=== PATIENT | female | born 1945 | race Caucasian/White ===

== ENCOUNTER 2016-11-09 13:28 | Observation (INO) | payer MEDICARE, OTHER ==
[2016-11-09] MEDS ORDERED: Aspirin Low Dose CHEW TAB* 81 MG ONE (13:45)
[2016-11-09] MEDS ORDERED: Aspirin Low Dose CHEW TAB* 81 MG PO ONE (13:55)
[2016-11-09] MEDS ORDERED: NS 0.9% 1000 ML* 1,000 ML IV SCH (14:00)
[2016-11-09 14:14] LABS: Hematocrit 40 % (35-47); Hemoglobin 13.6 g/dl (12.0-16.0); Mean Corpuscular HGB Conc 34 g/dl (31-36); Mean Corpuscular Hemoglobin 32 pg (27-31); Mean Corpuscular Volume 95 fL (80-97); Mean Platelet Volume 8 um3 (7.4-10.4); Red Blood Count 4.25 10^6/ul (4.0-5.4); Red Cell Distribution Width 13 % (10.5-15)
[2016-11-09 14:29] LABS: ALT 15 U/L (7-52); AST 24 U/L (13-39); Alkaline Phosphatase 66 U/L (34-104); BUN/Creatinine Ratio 24.7 (8-20); Blood Urea Nitrogen 22 mg/dL (6-24); C Reactive Protein 5.47 mg/L (< 5.00); CO2 Carbon Dioxide 29 mmol/L (22-32); Calcium 9.4 mg/dL (8.6-10.3); Chloride 126 mmol/L (101-111); Creatine Kinase 100 U/L (10-223); EGFR Non-African American 62.2 (>60); Globulin 3.4 g/dL (2-4); Glucose 103 mg/dL (70-100); Lipase < 10 U/L (11.0-82.0); Potassium 5.5 mmol/L (3.5-5.0); Total Protein 7.4 g/dL (6.4-8.9)
[2016-11-09 14:30] LABS: Troponin I 0.01 ng/mL (<0.04)
[2016-11-09 14:33] LABS: Anion Gap 14 mmol/L (2-11); Sodium 169 mmol/L (133-145)
--- NOTE | 2016-11-09 14:33 | RAD ---
Indication: Chest pain, lightheaded. Comparison: November 10, 2015 CT abdomen and chest radiograph. Technique: Upright AP 1405 hours Report: Clear lungs and pleural spaces. Negative for pneumothorax. The heart, pulmonary vasculature, and mediastinal contours are unremarkable. Mild osteoarthritis about the shoulders. IMPRESSION: No evidence for acute intrathoracic disease.
[2016-11-09 15:09] LABS: BUN/Creatinine Ratio 25.6 (8-20); Calcium 9.3 mg/dL (8.6-10.3); EGFR African American 83.2 (>60); EGFR Non-African American 64.7 (>60)
[2016-11-09 15:10] LABS: TSH (Thyroid Stimulating Horm) 0.97 mcIU/mL (0.34-5.60)
[2016-11-09] MEDS ORDERED: Albuterol HFA INHALER* 8 gm MDI INH PRN (16:13)
[2016-11-09] MEDS ORDERED: Mometasone/Formoter 200/5 MDI INH PRN (16:13)
[2016-11-09] MEDS ORDERED: Al Hydrox/Mg Hydrox/Simet LIQ* 30 ML UDC PO PRN (16:19)
--- NOTE | 2016-11-09 16:36 | ED ---
Kirill Swan Benjamin, scribed for Pardeep Enrique MD on 11/09/16 at 1448 . HPI Chest Pain - HPI Summary HPI Summary: 71yo female c/o feeling like passing out, lightheaded, and burning pain in mid sternal chest in 7/10 pain scale. Pt has hx of HTN, A-fib, and is on a blood thinner. - History of Current Complaint Chief Complaint: EDDysrhythmPalp Hx Obtained From: Patient Onset/Duration: Started Hours Ago, Resolved Timing: Constant Initial Severity: Mild Current Severity: None Pain Intensity: 0 Pain Scale Used: 0-10 Numeric Chest Pain Location: Mid Sternal Chest Pain Radiates: No Character: Burning Aggravating Factor(s): Nothing Alleviating Factor(s): Nothing Associated Signs and Symptoms: Positive: Syncope - near syncopal, Lightheadedness - Allergy/Home Medications Allergies/Adverse Reactions: Allergies Allergy/AdvReac Type Severity Reaction Status Date / Time No Known Allergies Allergy Verified 04/11/13 09:16 Home Medications: Home Medications Albuterol HFA INHALER* [Ventolin HFA Inhaler*] 1 puff INH Q6H PRN 11/09/16 [ History Confirmed 11/09/16] Budesonide/Formote 160/4.5(NF) [Symbicort 160/4.5 (NF)] 2 puff INH BID PRN 11/09 [History Confirmed 11/09/16] Calcium Citrate TAB* [Citracal TAB*] 600 mg PO BID 11/09/16 [History Confirmed 11/09/16] Cholecalciferol [Vitamin D] 1,000 unit PO DAILY 11/09/16 [History Confirmed ] Dabigatran CAP(NF) [Pradaxa CAP(NF)] 150 mg PO BID 11/09/16 [History Confirmed 11/09/16] Metoprolol Succinate XL TAB* [Toprol XL TAB*] 100 mg PO DAILY 11/09/16 [History Confirmed 11/09/16] Montelukast Sodium TAB* [Singulair TAB*] 10 mg PO DAILY 11/09/16 [History Confirmed 11/09/16] Omeprazole CAP* [Prilosec CAP* 20 MG] 20 mg PO DAILY 11/09/16 [History Confirmed 11/09/16] amLODIPine TAB* [Norvasc 5 mg TAB*] 5 mg PO DAILY 11/09/16 [History Confirmed ] PMH/Surg Hx/FS Hx/Imm Hx Endocrine/Hematology History: Reports: Hx Anticoagulant Therapy Denies: Hx Diabetes, Hx Thyroid Disease Cardiovascular History: Reports: Hx Atrial Fibrillation, Hx Hypertension Respiratory History: Reports: Hx Asthma Denies: Hx Chronic Obstructive Pulmonary Disease (COPD) GI History: Denies: Hx Ulcer - Surgical History Surgery Procedure, Year, and Place: Rotator Cuff Repair. Both Wrist Tendon Release. Trick Thumb Infectious Disease History: Yes Infectious Disease History: Denies: Hx Hepatitis, Hx Human Immunodeficiency Virus (HIV), Traveled Outside the [place] in Last 30 Days - Family History Known Family History: Positive: Hypertension - Social History Occupation: Retired Lives: With Family Alcohol Use: Occasionally Hx Substance Use: No Substance Use Type: Reports: None Hx Tobacco Use: No Smoking Status (MU): Never Smoked Tobacco Have You Smoked in the Last Year: No Review of Systems Constitutional: Other - NEAR SYNCOPE Eyes: Negative ENT: Negative Positive: Palpitations, Chest Pain Respiratory: Negative Gastrointestinal: Negative Genitourinary: Negative Musculoskeletal: Negative Skin: Negative Neurological: Negative Psychological: Normal All Other Systems Reviewed And Are Negative: Yes Physical Exam Vital Signs On Initial Exam: Initial Vitals Temp Pulse Resp BP Pulse Ox 98.0 F 45 16 133/89 99 11/09/16 13:29 11/09/16 13:29 11/09/16 13:29 11/09/16 13:29 11/09/16 13:29 Diagnostics - Vital Signs Vital Signs Temp Pulse Resp BP Pulse Ox 11/09/16 14:00 89 15 137/82 99 11/09/16 13:53 99 99 11/09/16 13:50 97.9 F 89 20 144/82 99 11/09/16 13:29 98.0 F 45 16 133/89 99 - Laboratory Lab Results: Lab Results 11/09/16 11/09/16 11/09/16 Range/Units 14:04 14:04 14:04 WBC 7.0 (3.5-10.8) 10^3/ul RBC 4.25 (4.0-5.4) 10^6/ul Hgb 13.6 (12.0-16.0) g/dl Hct 40 (35-47) % MCV 95 (80-97) fL MCH 32 H (27-31) pg MCHC 34 (31-36) g/dl RDW 13 (10.5-15) % Plt Count 243 (150-450) 10^3/ul MPV 8 (7.4-10.4) um3 Neut % (Auto) 55.8 (38-83) % Lymph % (Auto) 26.3 (25-47) % [place] % (Auto) 14.6 H (1-9) % Eos % (Auto) 2.4 (0-6) % Baso % (Auto) 0.9 (0-2) % Absolute Neuts (auto) 3.9 (1.5-7.7) 10^3/ul Absolute Lymphs (auto) 1.8 (1.0-4.8) 10^3/ul Absolute Monos (auto) 1.0 H (0-0.8) 10^3/ul Absolute Eos (auto) 0.2 (0-0.6) 10^3/ul Absolute Basos (auto) 0.1 (0-0.2) 10^3/ul Absolute Nucleated RBC 0 10^3/ul Nucleated RBC % 0 INR (Anticoag Therapy) 0.94 (0.89-1.11) APTT 37.6 H (26.0-36.3) seconds D-Dimer, Quantitative < 200 (Less Than 230) ng/mL Sodium 169 H* (133-145) mmol/L Potassium 5.5 H (3.5-5.0) mmol/L Chloride 126 H (101-111) mmol/L Carbon Dioxide 29 (22-32) mmol/L Anion Gap 14 H (2-11) mmol/L BUN 22 (6-24) mg/dL Creatinine 0.89 (0.51-0.95) mg/dL Est GFR ( Amer) 80.0 (>60) Est GFR (Non-Af Amer) 62.2 (>60) BUN/Creatinine Ratio 24.7 H (8-20) Glucose 103 H (70-100) mg/dL Lactic Acid (0.5-2.0) mmol/L Calcium 9.4 (8.6-10.3) mg/dL Magnesium 2.0 (1.9-2.7) mg/dL Total Bilirubin 0.60 (0.2-1.0) mg/dL AST 24 (13-39) U/L ALT 15 (7-52) U/L Alkaline Phosphatase 66 (34-104) U/L Total Creatine Kinase 100 (10-223) U/L CK-MB (CK-2) 2.4 (0.6-6.3) ng/mL Troponin I 0.01 (<0.04) ng/mL C-Reactive Protein 5.47 H (< 5.00) mg/L B-Natriuretic Peptide ( - 100) pg/mL Total Protein 7.4 (6.4-8.9) g/dL Albumin 4.0 (3.2-5.2) g/dL Globulin 3.4 (2-4) g/dL Albumin/Globulin Ratio 1.2 (1-3) Lipase < 10 L (11.0-82.0) U/L TSH Pending 11/09/16 11/09/16 Range/Units 14:04 14:04 WBC (3.5-10.8) 10^3/ul RBC (4.0-5.4) 10^6/ul Hgb (12.0-16.0) g/dl Hct (35-47) % MCV (80-97) fL MCH (27-31) pg MCHC (31-36) g/dl RDW (10.5-15) % Plt Count (150-450) 10^3/ul MPV (7.4-10.4) um3 Neut % (Auto) (38-83) % Lymph % (Auto) (25-47) % [place] % (Auto) (1-9) % Eos % (Auto) (0-6) % Baso % (Auto) (0-2) % Absolute Neuts (auto) (1.5-7.7) 10^3/ul Absolute Lymphs (auto) (1.0-4.8) 10^3/ul Absolute Monos (auto) (0-0.8) 10^3/ul Absolute Eos (auto) (0-0.6) 10^3/ul Absolute Basos (auto) (0-0.2) 10^3/ul Absolute Nucleated RBC 10^3/ul Nucleated RBC % INR (Anticoag Therapy) (0.89-1.11) APTT (26.0-36.3) seconds D-Dimer, Quantitative (Less Than 230) ng/mL Sodium (133-145) mmol/L Potassium (3.5-5.0) mmol/L Chloride (101-111) mmol/L Carbon Dioxide (22-32) mmol/L Anion Gap (2-11) mmol/L BUN (6-24) mg/dL Creatinine (0.51-0.95) mg/dL Est GFR ( Amer) (>60) Est GFR (Non-Af Amer) (>60) BUN/Creatinine Ratio (8-20) Glucose (70-100) mg/dL Lactic Acid 1.1 (0.5-2.0) mmol/L Calcium (8.6-10.3) mg/dL Magnesium (1.9-2.7) mg/dL Total Bilirubin (0.2-1.0) mg/dL AST (13-39) U/L ALT (7-52) U/L Alkaline Phosphatase (34-104) U/L Total Creatine Kinase (10-223) U/L CK-MB (CK-2) (0.6-6.3) ng/mL Troponin I (<0.04) ng/mL C-Reactive Protein (< 5.00) mg/L B-Natriuretic Peptide 364 H ( - 100) pg/mL Total Protein (6.4-8.9) g/dL Albumin (3.2-5.2) g/dL Globulin (2-4) g/dL Albumin/Globulin Ratio (1-3) Lipase (11.0-82.0) U/L TSH Result Diagrams: 11/09/16 14:04 11/09/16 14:45 Lab Statement: Any lab studies that have been ordered have been reviewed, and results considered in the medical decision making process. - Radiology CXR Xray Interpretation: No Acute Changes Radiology Interpretation Completed By: Radiologist - EKG 1335 Cardiac Rate: Tachycardia - 123bpm EKG Rhythm: Atrial Fibrillation Chest Pain Course/Dx - Course Course Of Treatment: NO CRITICAL CARE TIME. NA OF 169 RECHECKED, IT WAS 134 ON RECHECK. ADMIT HOSPITALIST STABLE. - Diagnoses Provider Diagnoses: Chest pain, Rapid atrial fibrillation, Near syncope, Bradycardia Discharge - Discharge Plan Condition: Stable Disposition: ADMITTED TO [facility] The documentation as recorded by the betiibKirill chauhan Benjamin accurately reflects the service I personally performed and the decisions made by me, Pardeep Enrique MD.
[2016-11-09] MEDS: CMCS: Dabigatran CAP(NF) 150 MG CAP PO SCH (21:43)
--- NOTE | 2016-11-10 02:13 | HP ---
CC: Dr. Maritza Woods in [place], [place] * HISTORY AND PHYSICAL: DATE OF ADMISSION: 11/09/16 AGE: 71. PRIMARY CARE PHYSICIAN: Dr. Maritza Woods. ATTENDING PHYSICIAN: Dr. Marylin Qureshi *(dictated by Laurie Reilly NP). CHIEF COMPLAINT: Lightheadedness with burning midsternal chest discomfort. HISTORY OF PRESENT ILLNESS: Ms. Khoury is a 71-year-old female with past medical history significant for hypertension, atrial fibrillation, and asthma who presents to the emergency room with complaints of lightheadedness and a burning midsternal chest pain. The patient states the family thinks she has had eaten today was a half of a banana prior to developing the heartburn in addition to her Pradaxa and other morning medications. The patient does not recall having previous symptoms like this in the past. The patient denies any chest heaviness, sharpness, or pressure, although she does report intermittent pain in her left breast and axillary when she reaches. The patient reports some palpitations earlier today. She denies any fever, chills. Does report a dry cough. Denies any shortness of breath, nausea, vomiting, diarrhea, diaphoresis. She denies any urinary symptoms. She reports developing a headache the day after arriving at the hospital. The patient also reports a 1- week history of a sharp pain in her left restoration. The patient felt that her chest discomfort was a heartburn, but due to the associated lightheadedness decided to present to the emergency room for further evaluation of her symptoms. While in the emergency room, the patient received normal saline and an aspirin. She had labs drawn that were initially altered, but upon re-draw were within normal limits. The patient reportedly had a heart rate in the 40s upon initial check in the emergency room, but upon being taken back and placed on the monitor , her heart rate was in the 90s to 100s. She had an EKG showing an atrial fibrillation with a rate of 123. This EKG is similar to previous EKG from 11/09. The patient had a chest x-ray showing no evidence for acute intracranial disease. The patient had a D-dimer less than 200, troponin 0.01, TSH 0.97, CRP of 5.47, BNP of 364. Due to the patient's presentation and complaints of a near -syncopal episode and chest discomfort, the hospitalists were asked to evaluate the patient for admission. PAST MEDICAL HISTORY: 1. Hypertension. 2. Atrial fibrillation. 3. Asthma. 4. MRSA infection of the thumb. 5. A torn retina in the left eye. PAST SURGICAL HISTORY: 1. Status post bilateral rotator cuff repair. 2. Status post bilateral tendon release of her wrist. 3. Status post bilateral "trick" thumb release. HOME MEDICATIONS: Include: 1. Albuterol HFA 1 puff inhalation every 6 hours as needed for shortness of breath or wheeze. 2. Amlodipine 5 mg oral daily. 3. Prilosec 20 mg oral daily. 4. Singulair 10 mg oral daily. 5. Metoprolol succinate 100 mg oral daily. 6. Pradaxa 150 mg oral twice daily. 7. Vitamin D 1000 units oral daily. 8. Citracal 600 mg oral twice daily. 9. Symbicort 160/4.5 mg 2 puff inhalation twice daily. 10. Acetaminophen 1300 mg oral as needed. ALLERGIES: ENVIRONMENTAL ALLERGIES and DARVON caused GI upset. FAMILY HISTORY: The patient denies any family history of coronary artery disease, diabetes mellitus, or cancer. SOCIAL HISTORY: The patient denies tobacco or recreational drug use. She drinks alcohol 1 to 2 times weekly with 1 to 2 glasses of wine in a day. The patient is retired. Her surrogate decision maker will be her daughter, Brandi Delgado, or her significant other, Caesar Taylor, in the event that she is unable to make decisions for herself. REVIEW OF SYSTEMS: I performed a 14-point review of systems. All the pertinent positives and negatives are mentioned in the history of present illness. The remaining review of systems are negative. PHYSICAL EXAMINATION GENERAL APPEARANCE: The patient is alert, pleasant, appears to be in no acute distress. VITAL SIGNS: Temperature 98.6, heart rate 97, respiratory rate 16, O2 sat 100% on room air, blood pressure 138/80. HEENT: Normocephalic, atraumatic. The patient has no temporal tenderness with palpation. Pupils are equal and reactive to light. Extraocular movements are intact. RESPIRATORY: There is no accessory muscle use and lungs are clear to auscultation bilaterally. CARDIOVASCULAR: Irregular irregular rate and rhythm. S1, S2 present. There are no murmurs, rubs, or gallops heard. ABDOMEN: Soft, nontender, nondistended. There are bowel sounds present x4. EXTREMITIES: There is no lower extremity edema. DP and PT pulses are 2+ and symmetric. MUSCULOSKELETAL: There is no clubbing or cyanosis noted. The patient exhibits good strength in all extremities. NEUROLOGICAL: The patient is alert and oriented x4. Cranial nerves II through XII are grossly intact. PSYCHOLOGICAL: The patient is calm and cooperative. SKIN: There are no rashes or abnormalities seen. DIAGNOSTIC STUDIES/LABORATORY DATA: Sodium 134, potassium 4.0, chloride 100, CO2 27, BUN 22, creatinine 0.86, and glucose 98. Magnesium 2.0, PTT 37.6, D- dimer less than 200, troponin 0.01. CRP 5.47, BNP 364. TSH 0.97. ECG from today shows atrial fibrillation with a rate of 123. This EKG is similar to previous EKG from 11/10/15, at which time the patient was also noted to be in atrial fibrillation. Chest x-ray from today. Radiologist's impression: No evidence for acute intrathoracic disease. IMPRESSION: Ms. Khoury is a 71-year-old female with past medical history significant for atrial fibrillation, hypertension, and asthma who presents to the emergency room with complaints of a near syncopal event with chest discomfort and lightheadedness. She will be admitted as an observation for chest pain, atrial fibrillation with rapid ventricular response, and near syncope. ASSESSMENT/PLAN: 1. Chest pain. I suspect this is likely indigestion. It has since resolved. The patient has a REMIGIO score of 1. We will trend her troponins and monitor her on telemetry. There are no signs of acute ischemia on telemetry. We will hold a a stress test at this time. 2. Atrial fibrillation with rapid ventricular response. The patient's heart rate is currently in the 90s to 110s. For now, we will continue her on her home metoprolol succinate and Pradaxa. We will monitor her on telemetry. If the patient's heart rate proves to be uncontrolled, we will consider getting a cardiology consult. The patient's magnesium and potassium are both at ideal levels with a potassium of 4.0 and a magnesium of 2.0. The patient should have a goal potassium of greater than 4.0 and magnesium of 2. The patient follows with Dr. Stone" in [place], [place]. 3. Near syncope. We will check the patient's orthostatic vital signs. I suspect this could have been related to the patient's atrial fibrillation. We will watch the patient on telemetry and see if she does in fact have bradycardia as initially reported. If she does in fact have bradycardia this may represent tachy-atul syndrome, we will ask Cardiology to consult. 4. Hypertension: We will continue the patient on her home amlodipine. 5. Asthma: The patient will be continued on her Symbicort or auto-substitute in addition to albuterol inhaler as needed. The patient currently does not have any signs of asthma exacerbation. 6. Fluids, electrolytes, and nutrition. The patient will be on a heart healthy diet. 7. Code status. Full code. 8. DVT prophylaxis. The patient is at high risk and will be continued on her home Pradaxa. 9. Disposition. Observation. TIME SPENT: The time for this admission was 60 minutes, greater than half of that was spent [id number] with the patient discussing medications, past medical history, and the events leading up to her arrival today and performing a physical examination. The case has been reviewed with the attending, Dr. Qureshi, who agrees with the plan of care. Reviewed by JULIA ELI 11/12/16 1513 [id number]/[facility] #: [id number] [place]
[2016-11-10 04:25] LABS: Urine Bilirubin Negative (Negative); Urine Glucose Negative (Negative); Urine Nitrite Negative (Negative)
[2016-11-10] MEDS ORDERED: Omeprazole CAP* 20 MG PO SCH (07:30)
[2016-11-10] MEDS ORDERED: amLODIPine TAB* 5 MG PO SCH (09:00)
[2016-11-10] MEDS ORDERED: Montelukast Sodium TAB* 10 MG PO SCH (09:00)
[2016-11-10] MEDS ORDERED: Metoprolol Succinate XL TAB* 100 MG PO SCH ×2 (09:00)
[2016-11-10] MEDS: CMCS: Dabigatran CAP(NF) 150 MG CAP PO SCH (10:17)
--- NOTE | 2016-11-10 12:58 | PN ---
Subjective Date of Service: 11/10/16 Interval History: Ms. Khoury states that she is feeling much better today. She denies chest pain , SOB, nausea or abdominal pain. Objective Active Medications: Al Hydrox/Mg Hydrox/Simethicone (Maalox Plus*) 30 ml PO Q6H PRN Albuterol (Ventolin Hfa Inhaler*) 1 puff INH Q6H PRN Amlodipine Besylate (Norvasc Tab*) 5 mg PO DAILY [facility] Dabigatran (Pradaxa Cap(Nf)) 150 mg PO BID [facility] Metoprolol Succinate (Toprol Xl Tab*) 100 mg PO DAILY [facility] Mometasone Furoate/Formoterol Fumar (Dulera 200/5 Mdi*) 2 puff INH BID PRN; Protocol Montelukast Sodium (Singulair Tab*) 10 mg PO DAILY [facility] Omeprazole (Prilosec Cap*) 20 mg PO DAILY@0730 [facility] Vital Signs 11/09/16 11/09/16 11/09/16 15:00 15:12 15:30 Temperature Pulse Rate 91 91 114 Respiratory 15 19 22 Rate Blood Pressure 132/76 140/71 (mmHg) O2 Sat by Pulse 98 98 98 Oximetry 11/09/16 11/09/16 11/09/16 15:44 20:04 23:49 Temperature 98.6 F 97.5 F 98.0 F Pulse Rate 99 69 82 Respiratory 16 16 20 Rate Blood Pressure 138/80 131/69 106/63 (mmHg) O2 Sat by Pulse 100 99 97 Oximetry 11/10/16 11/10/16 11/10/16 03:59 07:37 07:53 Temperature 98.4 F Pulse Rate 77 88 Respiratory 20 14 14 Rate Blood Pressure 100/62 126/43 (mmHg) O2 Sat by Pulse 97 99 Oximetry 11/10/16 07:58 Temperature 97.7 F Pulse Rate Respiratory Rate Blood Pressure (mmHg) O2 Sat by Pulse Oximetry Oxygen Devices in Use Now: None Appearance: Female sitting up in bed in NAD Eyes: No Scleral Icterus Ears/Nose/Mouth/Throat: Mucous Membranes Moist Neck: Trachea Midline Respiratory: Symmetrical Chest Expansion and Respiratory Effort, Clear to Auscultation Cardiovascular: NL Sounds; No Murmurs; No JVD, No Edema Abdominal: NL Sounds; No Tenderness; No Distention Lymphatic: No Cervical Adenopathy Extremities: No Edema Skin: No Rash or Ulcers Neurological: Alert and Oriented x 3, NL Muscle Strength and Tone Nutrition: Taking PO's Result Diagrams: 11/09/16 14:04 11/09/16 14:45 Additional Lab and Data: Lab Results 11/09/16 11/09/16 11/09/16 Range/Units 14:04 14:04 14:04 WBC 7.0 (3.5-10.8) 10^3/ul RBC 4.25 (4.0-5.4) 10^6/ul Hgb 13.6 (12.0-16.0) g/dl Hct 40 (35-47) % MCV 95 (80-97) fL MCH 32 H (27-31) pg MCHC 34 (31-36) g/dl RDW 13 (10.5-15) % Plt Count 243 (150-450) 10^3/ul MPV 8 (7.4-10.4) um3 Neut % (Auto) 55.8 (38-83) % Lymph % (Auto) 26.3 (25-47) % [place] % (Auto) 14.6 H (1-9) % Eos % (Auto) 2.4 (0-6) % Baso % (Auto) 0.9 (0-2) % Absolute Neuts (auto) 3.9 (1.5-7.7) 10^3/ul Absolute Lymphs (auto) 1.8 (1.0-4.8) 10^3/ul Absolute Monos (auto) 1.0 H (0-0.8) 10^3/ul Absolute Eos (auto) 0.2 (0-0.6) 10^3/ul Absolute Basos (auto) 0.1 (0-0.2) 10^3/ul Absolute Nucleated RBC 0 10^3/ul Nucleated RBC % 0 INR (Anticoag Therapy) 0.94 (0.89-1.11) APTT 37.6 H (26.0-36.3) seconds D-Dimer, Quantitative < 200 (Less Than 230) ng/mL Sodium 169 H* (133-145) mmol/L Potassium 5.5 H (3.5-5.0) mmol/L Chloride 126 H (101-111) mmol/L Carbon Dioxide 29 (22-32) mmol/L Anion Gap 14 H (2-11) mmol/L BUN 22 (6-24) mg/dL Creatinine 0.89 (0.51-0.95) mg/dL Est GFR ( Amer) 80.0 (>60) Est GFR (Non-Af Amer) 62.2 (>60) BUN/Creatinine Ratio 24.7 H (8-20) Glucose 103 H (70-100) mg/dL Lactic Acid (0.5-2.0) mmol/L Calcium 9.4 (8.6-10.3) mg/dL Magnesium 2.0 (1.9-2.7) mg/dL Total Bilirubin 0.60 (0.2-1.0) mg/dL AST 24 (13-39) U/L ALT 15 (7-52) U/L Alkaline Phosphatase 66 (34-104) U/L Total Creatine Kinase 100 (10-223) U/L CK-MB (CK-2) 2.4 (0.6-6.3) ng/mL Troponin I 0.01 (<0.04) ng/mL C-Reactive Protein 5.47 H (< 5.00) mg/L B-Natriuretic Peptide ( - 100) pg/mL Total Protein 7.4 (6.4-8.9) g/dL Albumin 4.0 (3.2-5.2) g/dL Globulin 3.4 (2-4) g/dL Albumin/Globulin Ratio 1.2 (1-3) Lipase < 10 L (11.0-82.0) U/L TSH Pending 11/09/16 11/09/16 Range/Units 14:04 14:04 WBC (3.5-10.8) 10^3/ul RBC (4.0-5.4) 10^6/ul Hgb (12.0-16.0) g/dl Hct (35-47) % MCV (80-97) fL MCH (27-31) pg MCHC (31-36) g/dl RDW (10.5-15) % Plt Count (150-450) 10^3/ul MPV (7.4-10.4) um3 Neut % (Auto) (38-83) % Lymph % (Auto) (25-47) % [place] % (Auto) (1-9) % Eos % (Auto) (0-6) % Baso % (Auto) (0-2) % Absolute Neuts (auto) (1.5-7.7) 10^3/ul Absolute Lymphs (auto) (1.0-4.8) 10^3/ul Absolute Monos (auto) (0-0.8) 10^3/ul Absolute Eos (auto) (0-0.6) 10^3/ul Absolute Basos (auto) (0-0.2) 10^3/ul Absolute Nucleated RBC 10^3/ul Nucleated RBC % INR (Anticoag Therapy) (0.89-1.11) APTT (26.0-36.3) seconds D-Dimer, Quantitative (Less Than 230) ng/mL Sodium (133-145) mmol/L Potassium (3.5-5.0) mmol/L Chloride (101-111) mmol/L Carbon Dioxide (22-32) mmol/L Anion Gap (2-11) mmol/L BUN (6-24) mg/dL Creatinine (0.51-0.95) mg/dL Est GFR ( Amer) (>60) Est GFR (Non-Af Amer) (>60) BUN/Creatinine Ratio (8-20) Glucose (70-100) mg/dL Lactic Acid 1.1 (0.5-2.0) mmol/L Calcium (8.6-10.3) mg/dL Magnesium (1.9-2.7) mg/dL Total Bilirubin (0.2-1.0) mg/dL AST (13-39) U/L ALT (7-52) U/L Alkaline Phosphatase (34-104) U/L Total Creatine Kinase (10-223) U/L CK-MB (CK-2) (0.6-6.3) ng/mL Troponin I (<0.04) ng/mL C-Reactive Protein (< 5.00) mg/L B-Natriuretic Peptide 364 H ( - 100) pg/mL Total Protein (6.4-8.9) g/dL Albumin (3.2-5.2) g/dL Globulin (2-4) g/dL Albumin/Globulin Ratio (1-3) Lipase (11.0-82.0) U/L TSH Microbiology and Other Data: Microbiology 11/09/16 16:10 Nasal Screen MRSA (PCR)([facility]) - Final Nasal Mrsa Positive Assess/Plan/Problems-Billing Assessment: Ms. Khoury is a 71 yo F with a PMH of HTN, asthma, and afib who was admitted on 11/09/16 with concern for chest pain and afib with RVR. - Patient Problems (1) Afib Comment: - HR controlled. - Continue metoprolol and pradaxa. (2) Chest pain Comment: - Resolved. - Trops 0.01 x 3. Suspect heartburn related. REMIGIO score 1, no further testing indicated inpatient. Encouraged patient to follow up with PCP. (3) Lightheadedness Comment: - Resolved. - Suspect related to afib with RVR. (4) Hypertension Comment: - SBP 100-120. - Continue metoprolol and amlodipine. (5) Asthma Comment: - Asymptomatic. - Continue home meds. (6) Full code status (7) DVT prophylaxis Comment: - Pradaxa. Status and Disposition: OBV. Discharge to home.
[2016-11-10 13:33] VITALS: BP 114/63
--- NOTE | 2016-11-11 11:44 | DS ---
CC: Dr. Woods in [facility] MEDICINE DISCHARGE SUMMARY: DATE OF ADMISSION: 11/09/16 DATE OF DISCHARGE: 11/10/16 ATTENDING PHYSICIAN: Jameson Durand MD* (dictation provided by Violette Harding NP ). PRIMARY DIAGNOSES: 1. Atrial fibrillation with rapid ventricular response. 2. Heartburn. 3. Lightheadedness. SECONDARY DIAGNOSES: 1. Hypertension. 2. Atrial fibrillation. 3. Asthma. 4. MRSA infection of the thumb. 5. Torn retina in the left eye. PAST SURGICAL HISTORY: 1. Status post bilateral rotator cuff repair. 2. Status post bilateral tenon release of the wrist. 3. Status post bilateral thumb release. MEDICATIONS AT THE TIME OF DISCHARGE: No medication changes. 1. Albuterol p.r.n. 2. Amlodipine 5 mg p.o. daily. 3. Prilosec 20 mg p.o. daily. 4. Singulair 10 mg p.o. daily. 5. Metoprolol succinate 100 mg p.o. daily. 6. Pradaxa 150 mg p.o. twice daily. 7. Vitamin D 1000 units p.o. daily. 8. Citracal 600 mg p.o. twice daily. 9. Symbicort 160/4.5 two puffs inhaled twice daily. 10. Tylenol 1300 mg oral as needed. HOSPITAL COURSE: Ms. Khoury is a 71-year-old female with a past medical history of hypertension, AFIB and asthma, who presented to the hospital on 11/09 with concern for lightheadedness with burning midsternal chest discomfort. Please see the dictated H and P from Laurie Espinoza NP, for complete details. In brief, the patient had reported lightheadedness with this burning midsternal chest discomfort. In the emergency room, she was found to have atrial fibrillation with rapid ventricular response with a heart rate of 120s. The patient's heart rate quickly returned to less than 100. She was chest pain free. Her first troponin was 0.01. Her chest x-ray was read as follows, "no evidence for acute intrathoracic disease." Ms. Khoury was observed in the hospital overnight. She had no evidence of arrhythmia on telemetry. Her troponins were repeated x2 and all of them were 0.01. She has had controlled AFib during the hospitalization. She has been up ambulating on the unit without any evidence of lightheadedness andis eager to go home. I will note that Ms. Khoury's first sodium level was 169, this was thought to be an error in blood draw and in fact on repeat, the sodium was 134. Ms. Khoury is medically stable for discharge to home to follow up with her primary care physician and institute director. I suspect that perhaps her lightheadedness was related to AFib with rapid ventricular response and that her burning in the chest was related to heartburn. She does state that she takes omeprazole daily at home for history of heartburn. Regardless, she is asymptomatic at this time and medically stable for discharge. DISPOSITION: To home. DIET: Low fat, low salt. ACTIVITY: As tolerated. FOLLOWUP PLANS: Please follow up with primary care physician regarding this acute hospitalization. TIME SPENT: Approximately 60 minutes were spent on the discharge of this patient, more than half time spent with the patient at the bedside reviewing the events leading up to this hospitalization, performing the physical examination, and reviewing the plan of care. VIOLETTE HARDING NP [id number]/[facility] #: [id number] [place]
== END 2016-11-10 15:00 | disposition home or self-care (01) ==
LOC: ED 13:28 → MEDTELE 14:40
PROVIDERS: ADMIT Internal Medicine; ATTEND Internal Medicine
DX: I48.91 Unspecified atrial fibrillation (principal); R07.9 Chest pain, unspecified; R12 Heartburn; R42 Dizziness and giddiness; I10 Essential (primary) hypertension; R55 Syncope and collapse; J45.909 Unspecified asthma, uncomplicated; Z86.14 Personal history of Methicillin resistant Staphylococcus aureus infection; Z79.01 Long term (current) use of anticoagulants; Z79.899 Other long term (current) drug therapy
CPT/HCPCS: 36415; 71010; 80048; 80053; 81003; 82550; 82553; 83605; 83690; 83735; 83880; 84443; 84484; 85025; 85379; 85610; 85730; 86140; 87641; 93005; 94640; 96360; 99284; A9270-GY; G0378